=== PATIENT | female | born 1995 | race American Indian/Alaskan Native ===

== ENCOUNTER 2018-08-11 14:51 | Emergency (ER) | payer OTHER ==
[2018-08-11 15:00] VITALS: RESP 18; BMI 34.2
[2018-08-11 15:17] VITALS: TEMP 98.1
--- NOTE | 2018-08-11 15:43 | ED PDOC ---
Arrival/HPI - General Chief Complaint: Female Genitourinary Time Seen by Provider: 08/11/18 15:04 Historian: Patient - History of Present Illness Narrative History of Present Illness (Text): 08/11/18 15:39 22 year old female that is A0, whose past medical history includes pulmonary embolism, presents to the emergency department with mild suprapubic cramping x 1 week. Associated vaginal bleeding for 1 day. Patient states she went to the [facility] 1 week ago at onset of cramping, where her workup included blood work and pelvic ultrasound, and was told it is possibly early based on hcg. Home tests have been negative. LMP 07/11/18. Patient denies any fever, chills, nausea, vomiting, urinary symptoms, chest pain, shortness of breath, headache, dizziness, or any other symptoms. Time/Duration: > week Symptom Onset: Gradual Symptom Course: Unchanged Quality: Cramping Past Medical History - Provider Review Nursing Documentation Reviewed: Yes - Infectious Disease Hx of Infectious Diseases: None - Reproductive Menopause: No Family/Social History - Physician Review Nursing Documentation Reviewed: Yes Family/Social History: No Known Family HX Allergies/Home Meds Allergies/Adverse Reactions: Allergies acetaminophen [From Tylenol] Adverse Reaction (Verified 08/11/18 15:17) SWELLING Review of Systems - Physician Review All systems were reviewed & negative as marked: Yes - Review of Systems Constitutional: Normal. absent: Fevers, Night Sweats Eyes: Normal. absent: Vision Changes ENT: Normal. absent: Sore Throat, Sinus Congestion Respiratory: Normal. absent: SOB, Cough, Sputum Cardiovascular: Normal. absent: Chest Pain, Palpitations, Syncope Gastrointestinal: Abdominal Pain (suprapubic). absent: Nausea, Vomiting Genitourinary Female: Vaginal Bleeding. absent: Dysuria, Frequency, Urine Output Changes Musculoskeletal: Normal. absent: Back Pain, Neck Pain Skin: Normal Neurological: Normal. absent: Headache, Dizziness Endocrine: Normal Hemo/Lymphatic: Normal Psychiatric: Normal Physical Exam Vital Signs Reviewed: Yes Vital Signs Temp Pulse Resp BP Pulse Ox 08/11/18 15:13 98.1 F 81 18 120/81 97 08/11/18 14:59 98.7 F 87 18 119/76 98 Temperature: Afebrile Blood Pressure: Normal Pulse: Regular Respiratory Rate: Normal Appearance: Positive for: Well-Appearing, Non-Toxic, Comfortable Pain Distress: None Mental Status: Positive for: Alert and Oriented X 3 - Systems Exam Head: Present: Atraumatic, Normocephalic Pupils: Present: PERRL Extroacular Muscles: Present: EOMI Conjunctiva: Present: Normal Mouth: Present: Moist Mucous Membranes Neck: Present: Normal Range of Motion Respiratory/Chest: Present: Clear to Auscultation, Good Air Exchange. No: Respiratory Distress, Accessory Muscle Use Cardiovascular: Present: Regular Rate and Rhythm, Normal S1, S2, Peripheal Pulses Present. No: Murmurs Abdomen: Present: Normal Bowel Sounds. No: Tenderness, Distention, Peritoneal Signs, Rebound, Guarding Genitourinary/Pelvic Exam: Present: Normal External Genitalia, Vaginal Bleeding, Cervical os Closed. No: Vaginal Discharge, Vaginal Lesions, Adenexal Tendern ess, Adenexal Mass, Cervical Motion Tendernes, Odor Back: Present: Normal Inspection. No: CVA Tenderness Upper Extremity: Present: Normal Inspection, Normal ROM, NORMAL PULSES, Neurovascularly Intact, Capillary Refill < 2s. No: Cyanosis, Edema Lower Extremity: Present: Normal Inspection, NORMAL PULSES, Normal ROM, Neurova scularly Intact, Capillary Refill < 2 s. No: Edema Neurological: Present: GCS=15, CN II-XII Intact, Speech Normal, Motor Func Grossly Intact, Normal Sensory Function, Gait Normal, Memory Normal Skin: Present: Warm, Dry, Normal Color. No: Rashes Lymphatic: No: Cervical Adenopathy Psychiatric: Present: Alert, Oriented x 3, Normal Insight, Normal Concentration, Normal Affect, Normal Mood Medical Decision Making ED Course and Treatment: 08/11/18 15:47 Impression: 22 year old female presents with suprapubic cramping and vaginal bl eeding Plan: -- B-HCG -- CMP -- CBC -- Urine -- Urinalysis, culture -- Transvaginal US -- Reassess and disposition Prior Visits: Notes and results from previous visits were reviewed Progress Notes: POC preg: negative Urine hcg: negative Hcg quant < 2: negative Pelvic exam chaperoned by EMT Marino Case discussed with Dr. Baker, who states type and screen is no longer indicated secondary to negative tests and normal hemoglobin. 18:00 Patient originally requested GC/Chlamydia testing, now refusing, states she wants to leave. Offered treatment with empiric Rocephin and Azithromycin for GC/Chlamydia, patient refuses. Diagnostic testing and plan of care discussed with patient. Strict instructions given regarding prescription use, importance of followup, and signs/symptoms to return to ER including worsening pain, fever, chills, N/V or any other new/worsening symptoms. Patient verbalizes understanding of instructions and was given the opportunity to ask questions. Patient A&Ox3, ambulating with steady gait, with vital signs stable for discharge. - Lab Interpretations Lab Results: 08/11/18 16:00 08/11/18 16:00 Lab Results 08/11/18 16:00: Urine Color Light yellow, Urine Appearance Slight-cloudy, Urine pH 6.0, Ur Specific [place] 1.025, Urine Protein Negative, Urine Glucose (UA) Negative, Urine Ketones Negative, Urine Blood Large H, Urine Nitrate Negative, Urine Bilirubin Negative, Urine Urobilinogen 0.2, Ur Leukocyte Esterase Trace H, Urine RBC 15 - 20 H, Urine WBC 0 - 2, Ur Epithelial Cells 0 - 2, Urine HCG, Qual Negative 08/11/18 16:00: Beta HCG, Quant < 2.39 08/11/18 16:00: Sodium 140, Potassium 3.6, Chloride 106, Carbon Dioxide 28, Anion Gap 10, BUN 8, Creatinine 0.8, Est GFR ( Amer) > 60, Est GFR (Non-A f Amer) > 60, Random Glucose 91, Calcium 9.1, Total Bilirubin 0.2, AST 29, ALT 27, Alkaline Phosphatase 94, Total Protein 7.6, Albumin 4.1, Globulin 3.5, Albumin/Globulin Ratio 1.2 08/11/18 16:00: PT 13.6 H, INR 1.19, APTT 27.7 08/11/18 16:00: WBC 10.3, RBC 5.43, Hgb 13.2, Hct 39.2, MCV 72.2 L, MCH 24.3 L, MCHC 33.7, RDW 17.1 H, Plt Count 463 H, MPV 8.9, Gran % 58.8, Lymph % (Auto) 30.8, [place] % (Auto) 9.3 H, Eos % (Auto) 0.8 L, Baso % (Auto) 0.3, Gran # 6.04, Lymph # (Auto) 3.2, [place] # (Auto) 1.0 H, Eos # (Auto) 0.1, Baso # (Auto) 0.03 I have reviewed the lab results: Yes Interpretation: All labs normal - RAD Interpretation Narrative RAD Interpretations (Text): 08/11/18 17:09 FINDINGS: UTERUS: Measures 3.2 x 3.4 x 7.0 cm. Normal in size and appearance. No fibroid or other mass lesion seen. ENDOMETRIUM: Measures 9.9 mm in diameter. No ultrasound findings to suggest gestational sac, fluid, debris, mass or polyp or other pathologic process within the endometrium. CERVIX: No cervical abnormality identified. RIGHT OVARY: Measures 0.7 x 1.9 x 2.2 cm. No solid mass. Normal flow. LEFT OVARY: Measures 0.2 x 1.6 x 2.6 cm. No solid mass. Normal flow. FREE FLUID: No significant free fluid noted. OTHER FINDINGS: None. IMPRESSION: Unremarkable pelvic ultrasound. Test Pilot: Radiologist - Scribe Statement The provider has reviewed the documentation as recorded by the Mary Jo Khan Provider Scribe Attestation: All medical record entries made by the Mary Jo were at my direction and personally dictated by me. I have reviewed the chart and agree that the record accurately reflects my personal performance of the history, physical exam, medical decision making, and the department course for this patient. I have also personally directed, reviewed, and agree with the discharge instructions and disposition. Disposition/Present on Arrival - Present on Arrival Any Indicators Present on Arrival: No History of DVT/PE: No History of Uncontrolled Diabetes: No Urinary Catheter: No History of Decub. Ulcer: No History Surgical Site Infection Following: None - Disposition Have Diagnosis and Disposition been Completed?: Yes Diagnosis: Vaginal bleeding, UTI (urinary tract infection) Disposition: HOME/ ROUTINE Disposition Time: 18:00 Patient Plan: Discharge Condition: IMPROVED Discharge Instructions (ExitCare): Urinary Tract Infection, Adult (DC), Bleeding With (DC) Additional Instructions: Increase fluids Take antibiotic every 12 hours x 7 days Followup with OBGYN within 2 days Followup with primary doctor within 2 days Return to ER for any new/worsening symptoms Prescriptions: Cephalexin [Keflex] 500 mg PO Q12H 7 Days #14 capsule Referrals: Misael Pozo MD [Primary Care Provider] - [facility] - Follow up with primary Forms: [employer] (Lao), WORK NOTE
[2018-08-11] MEDS ORDERED: Sodium Chloride 0.9% 1,000 ML IV STA (15:46)
[2018-08-11 16:22] LABS: BASO # 0.03 K/mm3 (0.0-2.0); BASO % 0.3 % (0.0-3.0); EOS # 0.1 (0.0-0.7); EOS % 0.8 % (1.5-5.0); GRAN # 6.04 (1.4-6.5); GRAN % 58.8 % (50.0-68.0); HEMOGLOBIN 13.2 g/dL (12.0-16.0); LYMPH # 3.2 (1.2-3.4); LYMPH % 30.8 % (22.0-35.0); MEAN CELL VOLUME 72.2 fl (80.0-105.0); MEAN CORPUSCULAR HEMOGLOBIN 24.3 pg (25.0-35.0); MEAN CORPUSCULAR HGB CONC 33.7 g/dl (31.0-37.0); MEAN PLATELET VOLUME 8.9 fl (7.0-11.0); MONO % 9.3 % (1.0-6.0); RBC 5.43 10^6/uL (3.5-6.1); RED CELL DISTRIBUTION WIDTH 17.1 % (11.5-14.5); WHITE BLOOD COUNT 10.3 10^3/uL (4.5-11.0)
[2018-08-11 16:23] LABS: URINE BILIRUBIN NEGATIVE (NEGATIVE); URINE BLOOD LARGE (NEGATIVE); URINE GLUCOSE (UA) NEGATIVE (NEGATIVE); URINE LEUKOCYTE ESTERASE TRACE Leu/uL (NEGATIVE); URINE PROTEIN NEGATIVE mg/dL (<30 mg/dL); URINE UROBILINOGEN 0.2 E.U./dL (<1 E.U./dL)
[2018-08-11 16:24] LABS: URINE APPEARANCE SLIGHT-CLOUDY (CLEAR); URINE COLOR LIGHT YELLOW (YELLOW)
[2018-08-11 16:25] LABS: HCG,QUALITATIVE URINE NEGATIVE (NEGATIVE)
[2018-08-11 16:27] LABS: URINE RBC 15 - 20 /hpf (0-2); URINE WBC 0 - 2 /hpf (0-6)
[2018-08-11 16:28] LABS: URINE EPITHELIAL CELLS 0 - 2 /hpf (0-5)
[2018-08-11 16:31] LABS: INR 1.19; PARTIAL THROMBOPLASTIN TIME 27.7 Seconds (25.1-36.5); PROTHROMBIN TIME 13.6 SECONDS (9.4-12.5)
[2018-08-11 16:33] LABS: ALB/GLOB RATIO 1.2 (1.1-1.8); ALBUMIN 4.1 g/dL (3.0-4.8); ALT/SGPT 27 U/L (7-56); AST/SGOT 29 U/L (14-36); BLOOD UREA NITROGEN 8 mg/dL (7-21); CALCIUM 9.1 mg/dL (8.4-10.5); GFR NON-AFRICAN AMERICAN > 60
--- NOTE | 2018-08-11 16:45 | US ---
Date of service: 08/11/2018 HISTORY: LMP 07/11/18, bleeding, possible preg Negative test (concurrent with this examination). COMPARISON: None available. TECHNIQUE: Transvaginal only. Real -time technique with 2D, duplex and color Doppler FINDINGS: UTERUS: Measures 3.2 x 3.4 x 7.0 cm. Normal in size and appearance. No fibroid or other mass lesion seen. ENDOMETRIUM: Measures 9.9 mm in diameter. No ultrasound findings to suggest gestational sac, fluid, debris, mass or polyp or other pathologic process within the endometrium. CERVIX: No cervical abnormality identified. RIGHT OVARY: Measures 0.7 x 1.9 x 2.2 cm. No solid mass. Normal flow. LEFT OVARY: Measures 0.2 x 1.6 x 2.6 cm. No solid mass. Normal flow. FREE FLUID: No significant free fluid noted. OTHER FINDINGS: None. IMPRESSION: Unremarkable pelvic ultrasound.
[2018-08-11 18:27] VITALS: BP 112/80; PULSE 82; O2SAT 99
== END 2018-08-11 18:00 | disposition home or self-care (01) ==
LOC: ED 14:51
DX: N93.9 Abnormal uterine and vaginal bleeding, unspecified (principal); N39.0 Urinary tract infection, site not specified; Z86.711 Personal history of pulmonary embolism